=== PATIENT | female | born 1970 | race African-American/Black ===

== ENCOUNTER 2016-12-10 02:11 | Emergency (ER) | payer OTHER ==
[2016-12-10 02:31] VITALS: BP 145/91; PULSE 89; TEMP 98; BMI 29.8
[2016-12-10 02:52] LABS: BASOPHIL 0.7 % (0-2.0); EOSINOPHIL 5.9 % (0-4.5); MCH 26.8 pg (25.7-33.7); MCHC 32.5 g/dl (32.0-36.0); MEAN CELL VOLUME 82.6 fl (80-96); MEAN PLT VOLUME 7.8 fl (7.5-11.1); NEUTROPHILS 54.5 % (42.8-82.8); PLATELET COUNT 341 K/MM3 (134-434); RDW 15.1 % (11.6-15.6); WHITE BLOOD COUNT 7.8 K/mm3 (4.0-10.0)
[2016-12-10 02:53] LABS: URINE APPEARANCE CLOUDY; URINE BILIRUBIN NEGATIVE (NEGATIVE); URINE COLOR YELLOW; URINE GLUCOSE (UA) NEGATIVE (NEGATIVE); URINE KETONE NEGATIVE (NEGATIVE); URINE NITRITE POSITIVE (NEGATIVE); URINE UROBILINOGEN NEGATIVE E.U./dl (0.2-1.0)
[2016-12-10 02:58] LABS: URINE BLOOD 2+ (NEGATIVE); URINE LEUK ESTERASE 3+ (NEGATIVE); URINE PROTEIN 2+ (NEGATIVE)
--- NOTE | 2016-12-10 03:12 | PDOC ---
*Physical Exam - Vital Signs Last Vital Signs Temp Pulse Resp BP Pulse Ox 98 F 89 18 145/91 99 12/10/16 02:24 12/10/16 02:24 12/10/16 02:24 12/10/16 02:24 12/10/16 02:24 ED Treatment Course - LABORATORY CBC & Chemistry Diagram: 12/10/16 02:34 12/10/16 02:34 - ADDITIONAL ORDERS Additional order review: Laboratory Results 12/10/16 02:36 Urine Color Yellow Urine Appearance Cloudy Urine pH 5.0 Urine Protein 2+ H Urine Glucose (UA) Negative Urine Ketones Negative Urine Blood 2+ H Urine Nitrite Positive Urine Bilirubin Negative Urine Urobilinogen Negative Ur Leukocyte Esterase 3+ H Urine HCG, Qual Negative 12/10/16 02:34 RBC 4.91 MCV 82.6 MCHC 32.5 RDW 15.1 MPV 7.8 Neutrophils % 54.5 Lymphocytes % 30.6 Monocytes % 8.3 Eosinophils % 5.9 H Basophils % 0.7 Medical Decision Making - Medical Decision Making 12/10/16 03:12 agree with care from CHON Santos *DC/Admit/Observation/Transfer Diagnosis at time of Disposition: UTI (urinary tract infection) - Discharge Dispostion Disposition: HOME - Prescriptions Prescriptions: Sulfamethoxazole/Trimethoprim [Bactrim Ds -] 1 tab PO BID #20 tablet Fluconazole [Diflucan -] 100 mg PO ONCE #1 tablet Fluconazole [Diflucan -] 50 mg PO ONCE #1 tablet Phenazopyridine HCl [Pyridium -] 100 mg PO TID #6 tablet - Referrals Referrals: Miguel Dempsey [Primary Care Provider] - - Patient Instructions Printed Discharge Instructions: DI for Urinary Tract Infection (UTI) Additional Instructions: FOLLOW UP WITH YOUR PRIMARY CARE PROVIDER NEEDED. TAKE MEDICATIONS PRESCRIBED. DIFLUCAN IS FOR POTENTIAL YEAST INFECTION; AND IS A ONE TIME DOSE, SO BE SURE YOU ARE EXPERIENCING A YEAST INFECTION. RETURN IF ANY CONCERNS FOR FURTHER EVALUATION. Print Language: FRISIAN
[2016-12-10 03:17] LABS: ALBUMIN 3.6 g/dl (3.4-5.0); BILIRUBIN,TOTAL 0.3 mg/dL (0.2-1.0); CALCIUM 9.2 mg/dL (8.5-10.1); COCKROFT - GAULT 72.998; CREATININE 1.1 mg/dL (0.55-1.02); TOT PROT 7.4 g/dl (6.4-8.2)
[2016-12-10 03:19] LABS: URINE BACTERIA RARE /hpf (NONE SEEN); URINE MUCUS RARE; URINE RBC 78 /hpf (0-3); URINE WBC 682 /hpf (3-5)
[2016-12-10] MEDS ORDERED: SULFAMETHOXAZOLE/TRIMETHOPRIM 800MG/160MG D.S. TABLET PO ONE (04:03)
--- NOTE | 2016-12-10 04:08 | PDOC ---
History of Present Illness - General Chief Complaint: Hematuria Stated Complaint: BLOOD IN URINE Time Seen by Provider: 12/10/16 02:15 History Source: Patient Exam Limitations: No Limitations - History of Present Illness Travel History: No Initial Comments: 12/10/16 04:03 46yo Female patient presents to ED c/o pain on urination, pressure, urgency, frequency, blood, foul odor x 1 week. Patient states she has been so busy with children graduation, moving south, and other things that she put symptoms off. Patient states her significant other made her come in tonight. She denies any other complaints at this time. LNMP: "Menopause." Timing/Duration: reports: getting worse Quality: reports: moderate Abdominal Pain Onset Location: reports: suprapubic Pain Radiation: reports: no radiation Activities at Onset: reports: no specific activity Past History - Travel Traveled outside of the country in the last 30 days: No Close contact w/someone who was outside of country & ill: No - Past Medical History Allergies/Adverse Reactions: Allergies Allergy/AdvReac Type Severity Reaction Status Date / Time ketorolac tromethamine Allergy Verified 12/10/16 02:16 [From Toradol] Home Medications: Ambulatory Orders No Home Medications 0 mg PO DAILY 05/18/12 Fluconazole [Diflucan -] 50 mg PO ONCE #1 tablet 12/10/16 Fluconazole [Diflucan -] 100 mg PO ONCE #1 tablet 12/10/16 Phenazopyridine HCl [Pyridium -] 100 mg PO TID #6 tablet 12/10/16 Sulfamethoxazole/Trimethoprim [Bactrim Ds -] 1 tab PO BID #20 tablet 12/10/16 - Immunization History Immunization Up to Date: Yes - Psycho/Social/Smoking Cessation Hx Anxiety: No Suicidal Ideation: No Smoking Status: No Smoking History: Current every day smoker Number of Cigarettes Smoked Daily: 0 Information on smoking cessation initiated: No Hx Alcohol Use: No Drug/Substance Use Hx: Yes (marijuana) Substance Use Type: Marijuana Abd/GI Specific PMHX - Complaint Specific PMHX Colitis: No Diverticulitis: No Gall Bladder Disease: No GERD: No Hepatitis: No Irritable Bowel Synd (IBS): No Pancreatitis: No GI Ulcer Disease: No Review of Systems - Review of Systems Able to Perform ROS?: Yes Is the patient limited Liberian proficient: No Constitutional: No: Chills, Fever Respiratory: No: Cough, Shortness of Breath, Stridor, Wheezing Cardiac (ROS): No: Chest Pain, Lightheadedness, Palpitations, Syncope, Chest Tightness ABD/GI: No: Constipated, Diarrhea, Nausea, Poor Appetite, Poor Fluid Intake, Rectal Bleeding, Vomiting : Yes: Burning, Dysuria, Frequency, Hematuria, Pain, Urgency. No: Discharge, Flank Pain, Incontinence Musculoskeletal: No: Back Pain Integumentary: No: Bruising, Erythema, Rash Neurological: No: Headache, Seizure, Unsteady Gait, Ataxia, Dizziness All Other Systems: Reviewed and Negative *Physical Exam - Vital Signs Last Vital Signs Temp Pulse Resp BP Pulse Ox 98 F 89 18 145/91 99 12/10/16 02:24 12/10/16 02:24 12/10/16 02:24 12/10/16 02:24 12/10/16 02:24 - Physical Exam General Appearance: Yes: Nourished, Appropriately Dressed. No: Apparent Distress, Mild Distress, Moderate Distress, Severe Distress Neck: positive: Trachea midline, Supple. negative: Rigid, Stridor, Lymphadenopathy (R), Lymphadenopathy (L) Respiratory/Chest: positive: Lungs Clear, Normal Breath Sounds. negative: Chest Tender, Respiratory Distress, Accessory Muscle Use, Labored Respiration, Rapid RR, Decreased Breath Sounds, Wheezing Cardiovascular: positive: Regular Rhythm, Regular Rate Gastrointestinal/Abdominal: positive: Normal Bowel Sounds, Soft. negative: Distended, Guarding, Rebound, Tenderness Musculoskeletal: positive: Normal Inspection. negative: CVA Tenderness, Vertebral Tenderness Extremity: positive: Normal Capillary Refill, Normal Inspection, Normal Range of Motion. negative: Pedal Edema, Swelling, Calf Tenderness, Erythema, Inflammation Integumentary: positive: Normal Color, Dry, Warm. 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, Fully Oriented, Alert, Normal Mood/ Affect, Normal Response, Motor Strength 12/10 ED Treatment Course - LABORATORY CBC & Chemistry Diagram: 12/10/16 02:34 12/10/16 02:34 - ADDITIONAL ORDERS Additional order review: Laboratory Results 12/10/16 12/10/16 02:36 02:34 Sodium 138 Potassium 3.6 Chloride 104 Carbon Dioxide 23 Anion Gap 11 BUN 15 D Creatinine 1.1 H D Creat Clearance w eGFR 53.01 Random Glucose 115 H D Calcium 9.2 Total Bilirubin 0.3 AST 11 L D ALT 19 D Alkaline Phosphatase 77 Total Protein 7.4 Albumin 3.6 Urine Color Yellow Urine Appearance Cloudy Urine pH 5.0 Urine Protein 2+ H Urine Glucose (UA) Negative Urine Ketones Negative Urine Blood 2+ H Urine Nitrite Positive Urine Bilirubin Negative Urine Urobilinogen Negative Ur Leukocyte Esterase 3+ H Urine RBC 78 Urine WBC 682 Ur Epithelial Cells Rare Urine Bacteria Rare Urine Mucus Rare Urine HCG, Qual Negative 12/10/16 02:34 RBC 4.91 MCV 82.6 MCHC 32.5 RDW 15.1 MPV 7.8 Neutrophils % 54.5 Lymphocytes % 30.6 Monocytes % 8.3 Eosinophils % 5.9 H Basophils % 0.7 *DC/Admit/Observation/Transfer Diagnosis at time of Disposition: UTI (urinary tract infection) Qualifiers: Urinary tract infection type: urethritis Qualified Code(s): N34.2 - Other urethritis - Discharge Dispostion Disposition: HOME Condition at time of disposition: Stable Admit: No - Prescriptions Prescriptions: Sulfamethoxazole/Trimethoprim [Bactrim Ds -] 1 tab PO BID #20 tablet Fluconazole [Diflucan -] 100 mg PO ONCE #1 tablet Fluconazole [Diflucan -] 50 mg PO ONCE #1 tablet Phenazopyridine HCl [Pyridium -] 100 mg PO TID #6 tablet - Patient Instructions Printed Discharge Instructions: DI for Urinary Tract Infection (UTI) Additional Instructions: FOLLOW UP WITH YOUR PRIMARY CARE PROVIDER NEEDED. TAKE MEDICATIONS PRESCRIBED. DIFLUCAN IS FOR POTENTIAL YEAST INFECTION; AND IS A ONE TIME DOSE, SO BE SURE YOU ARE EXPERIENCING A YEAST INFECTION. RETURN IF ANY CONCERNS FOR FURTHER EVALUATION. Print Language: MACEDONIAN
[2016-12-10] MEDS ORDERED: SULFAMETHOXAZOLE/TRIMETHOPRIM 800MG/160MG D.S. TABLET ONE (04:10)
[2016-12-10] MEDS ORDERED: cefTRIAXone SODIUM 1 GM VIAL ONE (04:10)
[2016-12-10] MEDS ORDERED: LIDOCAINE HCL 2% (20ML MULTI-DOSE VIAL) NR ONE (04:12)
== END 2016-12-10 04:30 | disposition home or self-care (01) ==
LOC: JER 02:11
DX: N34.2 Other urethritis (principal); F17.210 Nicotine dependence, cigarettes, uncomplicated
CPT/HCPCS: 36415; 80053; 81003; 81015; 84703; 85025; 96372; 99282-25

== ENCOUNTER 2017-08-22 16:44 | Observation (INO) | payer OTHER ==
[2017-08-22 16:56] VITALS: BMI 32.9
--- NOTE | 2017-08-22 17:00 | PDOC ---
Rapid Medical Evaluation Chief Complaint: Abscess Boil Time Seen by Provider: 08/22/17 16:51 Medical Evaluation: Allergies Allergy/AdvReac Type Severity Reaction Status Date / Time ketorolac tromethamine Allergy Verified 08/22/17 16:49 [From Toradol] 08/22/17 16:53 I have performed a brief in-person evaluation of this patient. The patient presents with a chief complaint of pain and abscess to left jaw x 2 days. Reports pain radiating to left ear. Also reports fever and chills Pertinent physical exam findings: appears in pain HEENT: SHARON, swelling to left jaw with erythema, warm, indurated and tender mulitple caries and broken teeth Lungs clear bilateral I have ordered the following: analgesia iv acces labs The patient will proceed to the ED for further evaluation.
[2017-08-22 17:18] LABS: BASO % 0.7 % (0-2.0); EOS % 3.8 % (0-4.5); HEMATOCRIT 42.2 % (32.4-45.2); HEMOGLOBIN 14.1 GM/dL (10.7-15.3); LYMPH % 21.5 % (8-40); MCH 27.5 pg (25.7-33.7); MCHC 33.4 g/dl (32.0-36.0); MEAN CELL VOLUME 82.2 fl (80-96); MONO % 10.9 % (3.8-10.2); NEUT % 63.1 % (42.8-82.8); PLATELET COUNT 362 K/MM3 (134-434); RBC 5.14 M/mm3 (3.60-5.2); RDW 15.2 % (11.6-15.6)
[2017-08-22 18:21] LABS: ALBUMIN 3.6 g/dl (3.4-5.0); ALK PHOS 76 U/L (45-117); ANION GAP 10 (8-16); BILIRUBIN,TOTAL 0.4 mg/dL (0.2-1.0); BLOOD UREA NITROGEN 12 mg/dL (7-18); CALCIUM 8.8 mg/dL (8.5-10.1); CHLORIDE 104 mmol/L (98-107); CO2 23 mmol/L (21-32); CREATININE 0.9 mg/dL (0.55-1.02); GLUCOSE,RANDOM 94 mg/dL (74-106); POTASSIUM 4.1 mmol/L (3.5-5.1); SGOT/AST 12 U/L (15-37); SGPT/ALT 14 U/L (12-78); SODIUM 137 mmol/L (136-145); TOT PROT 7.7 g/dl (6.4-8.2)
[2017-08-22] MEDS ORDERED: CLINDAMYCIN 600MG PREMIX IVPB 600 MG/50 ML BAG IVPB ONE ×2 (18:44→19:26)
[2017-08-22] MEDS ORDERED: HYDROmorphone HCL CARPU-JECT 1 MG/1 ML DISP.SYRIN IVPUSH ONE (19:53)
[2017-08-22 20:36] LABS: URINE APPEARANCE CLEAR; URINE BILIRUBIN NEGATIVE (NEGATIVE); URINE BLOOD NEGATIVE (NEGATIVE); URINE COLOR YELLOW; URINE GLUCOSE (UA) NEGATIVE (NEGATIVE); URINE KETONE NEGATIVE (NEGATIVE); URINE LEUK ESTERASE NEGATIVE (NEGATIVE); URINE NITRITE NEGATIVE (NEGATIVE); URINE PROTEIN NEGATIVE (NEGATIVE); URINE UROBILINOGEN NEGATIVE mg/dL (0.2-1.0)
[2017-08-22 20:37] LABS: BASO % 0.9 % (0-2.0); EOS % 4.4 % (0-4.5); HEMATOCRIT 41.6 % (32.4-45.2); HEMOGLOBIN 13.5 GM/dL (10.7-15.3); LYMPH % 27.4 % (8-40); MCH 27.1 pg (25.7-33.7); MCHC 32.5 g/dl (32.0-36.0); MEAN CELL VOLUME 83.3 fl (80-96); MEAN PLT VOLUME 8.2 fl (7.5-11.1); MONO % 9.3 % (3.8-10.2); PLATELET COUNT 350 K/MM3 (134-434); RDW 14.9 % (11.6-15.6); WHITE BLOOD COUNT 8.4 K/mm3 (4.0-10.0)
[2017-08-22] MEDS ORDERED: HYDROmorphone HCL CARPU-JECT 1 MG/1 ML DISP.SYRIN ONE (20:42)
[2017-08-22 20:50] LABS: INR 1.04 (0.82-1.09); PROTHROMBIN TIME (PATIENT) 11.7 SEC (9.98-11.88)
[2017-08-22 20:52] LABS: ACTIVATED PTT 32.5 SECONDS (26.9-34.4)
--- NOTE | 2017-08-22 21:05 | PDOC ---
History of Present Illness <Alyssa Hussein - Last Filed: 08/22/17 21:05> - General History Source: Patient Exam Limitations: No Limitations - History of Present Illness Initial Comments: 08/22/17 22:22 Patient is a 47 year old female with a significant past medical history of fibroids, who presents to the ED with complaints of left sided facial swelling and pain that began last week. Patient reports cracking her molar last week causing immediate pain. She reports not seeing anyone for left sided jaw pain, but stated she could no longer stand the pain this morning. As per patient, reports being too frightened to open her mouth, stating it causes her increased pain. She reports experiencing headache and difficulty breathing while laying down secondary to left sided facial pain. Patient reports experiencing nasal congestion, chest congestion, chills and fever of 99.5. Denies chest pain. Denies nausea, vomiting. Denies contact with sick individuals , out of state travelling. Denies any other symptoms. Allergie: Toradol Social history: No smoking. No alcohol. No illicit drugs. Surgical history: Hysterectomy PMD: Dr. Davi Ahumada <Lauro Aguilar - Last Filed: 08/22/17 22:23> - General Chief Complaint: Abscess Boil Stated Complaint: ABSCESS BOIL Time Seen by Provider: 08/22/17 16:51 Past History - Past Medical History CVA: No COPD: No DVT: No - Immunization History Immunization Up to Date: Yes - Suicide/Smoking/Psychosocial Hx Smoking Status: No Smoking History: Never smoked Have you smoked in the past 12 months: No Number of Cigarettes Smoked Daily: 2 Information on smoking cessation initiated: No Hx Alcohol Use: No Drug/Substance Use Hx: No Substance Use Type: Cocaine, Marijuana <Alyssa Hussein - Last Filed: 08/22/17 21:05> <Lauro Aguilar - Last Filed: 08/22/17 22:23> - Past Medical History Allergies/Adverse Reactions: Allergies Allergy/AdvReac Type Severity Reaction Status Date / Time ketorolac tromethamine Allergy Verified 08/22/17 16:49 [From Toradol] Home Medications: Ambulatory Orders NK [No Known Home Medication] 08/22/17 Review of Systems - Review of Systems Able to Perform ROS?: Yes Comments:: 08/22/17 22:22 CONSTITUTIONAL: Absent: fever, chills, diaphoresis, generalized weakness, malaise, loss of appetite HEENT: +Left sided face pain. +Left sided facial edema. +Nasal congestion. Absent: rhinorrhea, throat pain, throat swelling, difficulty swallowing, ear pain, eye pain, visual Changes CARDIOVASCULAR: Absent: chest pain, syncope, palpitations, irregular heart rate, lightheadedness , peripheral edema RESPIRATORY: +Chest congestion. Absent: cough, shortness of breath, dyspnea with exertion, orthopnea, wheezing, stridor, hemoptysis GASTROINTESTINAL: Absent: abdominal pain, abdominal distension, nausea, vomiting, diarrhea, constipation, melena, hematochezia GENITOURINARY: Absent: dysuria, frequency, urgency, hesitancy, hematuria, flank pain, genital pain MUSCULOSKELETAL: Absent: myalgia, arthralgia, joint swelling SKIN: Absent: rash, itching, pallor HEMATOLOGIC/IMMUNOLOGIC: Absent: easy bleeding, easy bruising, lymphadenopathy, frequent infections ENDOCRINE: Absent: unexplained weight gain, unexplained weight loss, heat intolerance, cold intolerance NEUROLOGIC: +Headache Absent: focal weakness or paresthesias, dizziness, unsteady gait, seizure, mental status changes, bladder or bowel incontinence PSYCHIATRIC: Absent: anxiety, depression, suicidal or homicidal ideation, hallucinations. All Other Systems: Reviewed and Negative <Lauro Aguilar - Last Filed: 08/22/17 22:23> *Physical Exam - Vital Signs Last Vital Signs Temp Pulse Resp BP Pulse Ox 99.5 F 100 H 17 129/79 98 08/22/17 16:50 08/22/17 16:50 08/22/17 16:50 08/22/17 16:50 08/22/17 16:50 <Alyssa Hussein - Last Filed: 08/22/17 21:05> - Vital Signs Last Vital Signs Temp Pulse Resp BP Pulse Ox 99.5 F 100 H 17 129/79 98 08/22/17 16:50 08/22/17 16:50 08/22/17 16:50 08/22/17 16:50 08/22/17 16:50 - Physical Exam Comments: 08/22/17 22:22 GENERAL: +Fever, +Chills Well developed, well nourished. Awake and alert. No acute distress. HEENT: +Left mandibular swelling. +Submandibular left sided swelling. +cracked mandibular left molar. +Trismus. +Erythema on face. Normocephalic, atraumatic. PERRLA, EOMI. No conjunctival pallor. Sclera are non- icteric. Moist mucous membranes. Oropharynx is clear. NECK: Supple. Full ROM. No JVD. Carotid pulses 2+ and symmetric, without bruits. No thyromegaly. No lymphadenopathy. CARDIOVASCULAR: +Tachycardic Regular rate and rhythm. No murmurs, rubs, or gallops. Distal pulses are 2+ and symmetric. PULMONARY: No evidence of respiratory distress. Lungs clear to auscultation bilaterally. No wheezing, rales or rhonchi. ABDOMINAL: Soft. Non-tender. Non-distended. No rebound or guarding. No organomegaly. Normoactive bowel sounds. MUSCULOSKELETAL Normal range of motion at all joints. No bony deformities or tenderness. No CVA tenderness. EXTREMITIES: No cyanosis. No clubbing. No edema. No calf tenderness. SKIN: Warm and dry. Normal capillary refill. No rashes. No jaundice. NEUROLOGICAL: Alert, awake, appropriate. Cranial nerves 2-12 intact. No deficits to light touch and temperature in face, upper extremities and lower extremities. No motor deficits in the in face, upper extremities and lower extremities. Normoreflexic in the upper and lower extremities. Normal speech. Toes are down-going bilaterally. Gait is normal without ataxia. PSYCHIATRIC: Cooperative. Good eye contact. Appropriate mood and affect. <Lauro Aguilar - Last Filed: 08/22/17 22:23> ED Treatment Course - LABORATORY CBC & Chemistry Diagram: 08/22/17 20:20 08/22/17 17:07 - ADDITIONAL ORDERS Additional order review: Laboratory Results 08/22/17 08/22/17 20:20 17:07 PT with INR 11.70 INR 1.04 PTT (Actin FS) 32.5 Sodium 137 Potassium 4.1 Chloride 104 Carbon Dioxide 23 Anion Gap 10 BUN 12 Creatinine 0.9 Creat Clearance w eGFR > 60 Random Glucose 94 Calcium 8.8 Total Bilirubin 0.4 D AST 12 L ALT 14 D Alkaline Phosphatase 76 Total Protein 7.7 Albumin 3.6 08/22/17 08/22/17 20:20 17:07 RBC 5.00 5.14 MCV 83.3 82.2 MCHC 32.5 33.4 RDW 14.9 15.2 MPV 8.2 8.0 Neutrophils % 58.0 63.1 Lymphocytes % 27.4 D 21.5 D Monocytes % 9.3 10.9 H Eosinophils % 4.4 3.8 Basophils % 0.9 0.7 - RADIOLOGY Radiology Studies Ordered: Category Date Time Status SOFT TISSUE NECK CT W/O CONTR [CT] Stat CT Scan 08/22/17 18:45 Completed - Medications Given in the ED: ED Medications Discontinued Medications Generic Name Dose Route Start Last Admin Trade Name Chon PRN Reason Stop Dose Admin Hydromorphone HCl 0.5 mg 08/22/17 19:53 08/22/17 20:51 Dilaudid Injection - IVPUSH 08/22/17 19:54 0.5 mg ONCE ONE Administration Clindamycin Phosphate 600 mg in 50 mls @ 100 mls/hr 08/22/17 18:44 08/22/17 20:32 Cleocin 600 Mg Premix Ivpb - IVPB 08/22/17 19:13 100 mls/hr ONCE ONE Administration Oxycodone/Acetaminophen 1 combo 08/22/17 17:01 08/22/17 18:29 Percocet 5/325 - PO 08/22/17 17:02 Not Given ONCE ONE <Alyssa Hussein - Last Filed: 08/22/17 21:05> - LABORATORY CBC & Chemistry Diagram: 08/22/17 20:20 08/22/17 20:20 - ADDITIONAL ORDERS Additional order review: Laboratory Results 08/22/17 08/22/17 08/22/17 20:56 20:20 20:20 PT with INR INR PTT (Actin FS) VBG pH 7.36 POC VBG pCO2 43.7 POC VBG pO2 70.6 H Mixed VBG HCO3 23.8 Sodium 138 Potassium 4.1 Chloride 104 Carbon Dioxide 25 Anion Gap 9 BUN 12 Creatinine 0.9 Creat Clearance w eGFR > 60 Random Glucose 89 Lactic Acid Cancelled Calcium 8.3 L Total Bilirubin 0.5 D AST 11 L ALT 14 Alkaline Phosphatase 77 Creatine Kinase 110 Troponin I < 0.02 Total Protein 7.6 Albumin 3.4 Urine Color Urine Appearance Urine pH Ur Specific [place] Urine Protein Urine Glucose (UA) Urine Ketones Urine Blood Urine Nitrite Urine Bilirubin Urine Urobilinogen Ur Leukocyte Esterase 08/22/17 08/22/17 08/22/17 20:20 20:20 17:07 PT with INR 11.70 INR 1.04 PTT (Actin FS) 32.5 VBG pH POC VBG pCO2 POC VBG pO2 Mixed VBG HCO3 Sodium 137 Potassium 4.1 Chloride 104 Carbon Dioxide 23 Anion Gap 10 BUN 12 Creatinine 0.9 Creat Clearance w eGFR > 60 Random Glucose 94 Lactic Acid Calcium 8.8 Total Bilirubin 0.4 D AST 12 L ALT 14 D Alkaline Phosphatase 76 Creatine Kinase Troponin I Total Protein 7.7 Albumin 3.6 Urine Color Yellow Urine Appearance Clear Urine pH 5.0 Ur Specific [place] 1.030 Urine Protein Negative Urine Glucose (UA) Negative Urine Ketones Negative Urine Blood Negative Urine Nitrite Negative Urine Bilirubin Negative Urine Urobilinogen Negative Ur Leukocyte Esterase Negative 08/22/17 08/22/17 20:20 17:07 RBC 5.00 5.14 MCV 83.3 82.2 MCHC 32.5 33.4 RDW 14.9 15.2 MPV 8.2 8.0 Neutrophils % 58.0 63.1 Lymphocytes % 27.4 D 21.5 D Monocytes % 9.3 10.9 H Eosinophils % 4.4 3.8 Basophils % 0.9 0.7 - Medications Given in the ED: ED Medications Discontinued Medications Generic Name Dose Route Start Last Admin Trade Name Chon PRN Reason Stop Dose Admin Hydromorphone HCl 0.5 mg 08/22/17 19:53 08/22/17 20:51 Dilaudid Injection - IVPUSH 08/22/17 19:54 0.5 mg ONCE ONE Administration Clindamycin Phosphate 600 mg in 50 mls @ 100 mls/hr 08/22/17 18:44 08/22/17 20:32 Cleocin 600 Mg Premix Ivpb - IVPB 08/22/17 19:13 100 mls/hr ONCE ONE Administration Oxycodone/Acetaminophen 1 combo 08/22/17 17:01 08/22/17 18:29 Percocet 5/325 - PO 08/22/17 17:02 Not Given ONCE ONE <Lauro Aguilar - Last Filed: 08/22/17 22:23> *DC/Admit/Observation/Transfer - Discharge Dispostion Admit: Yes <Alyssa Hussein - Last Filed: 08/22/17 21:05> - Attestations Scribe Attestion: 08/22/17 22:23 Documentation prepared by Lauro Aguilar, acting as director medical writing for Alyssa Hussein MD/DO. <Lauro Aguilar - Last Filed: 08/22/17 22:23> Diagnosis at time of Disposition: Dental abscess, Swelling of left side of face, Submandibular abscess
[2017-08-22 21:14] LABS: ALBUMIN 3.4 g/dl (3.4-5.0); ANION GAP 9 (8-16); BILIRUBIN,TOTAL 0.5 mg/dL (0.2-1.0); BLOOD UREA NITROGEN 12 mg/dL (7-18); CALCIUM 8.3 mg/dL (8.5-10.1); CHLORIDE 104 mmol/L (98-107); CO2 25 mmol/L (21-32); CREATININE 0.9 mg/dL (0.55-1.02); GLUCOSE,RANDOM 89 mg/dL (74-106); POTASSIUM 4.1 mmol/L (3.5-5.1); SGOT/AST 11 U/L (15-37); SGPT/ALT 14 U/L (12-78); SODIUM 138 mmol/L (136-145); TOT PROT 7.6 g/dl (6.4-8.2)
[2017-08-22 21:17] LABS: ALK PHOS 77 U/L (45-117)
[2017-08-22 21:49] LABS: VENOUS PC02 43.7 mmHg (38-52); VENOUS PH 7.36 (7.32-7.42); VENOUS PO2 70.6 mmHg (28-48)
--- NOTE | 2017-08-22 23:18 | HP ---
Admitting History and Physical - Primary Care Physician PCP: Mattie Laguna - Admission Chief Complaint: left sided facial pain and swelling History of Present Illness: 47 year old female with a significant past medical history of fibroids, who presents to the ED with complaints of left sided facial swelling and pain that began last week. Patient reports cracking her molar last week causing immediate pain. She reports not seeing anyone for left sided jaw pain, but stated she could no longer stand the pain this morning. As per patient , reports being too frightened to open her mouth, stating it causes her increased pain. She reports experiencing headache and difficulty breathing while laying down secondary to left sided facial pain. Patient reports experiencing nasal congestion, chest congestion, chills and fever of 99.5. - Smoking History Smoking history: Never smoked Have you smoked in the past 12 months: No Aproximately how many cigarettes per day: 2 - Alcohol/Substance Use Hx Alcohol Use: No Home Medications - Allergies Allergies/Adverse Reactions: Allergies Allergy/AdvReac Type Severity Reaction Status Date / Time ketorolac tromethamine Allergy Verified 08/22/17 16:49 [From Toradol] - Home Medications Home Medications: Ambulatory Orders NK [No Known Home Medication] 08/22/17 Physical Examination Vital Signs: Vital Signs Temperature 99.5 F 08/22/17 16:50 Pulse Rate 100 H 08/22/17 16:50 Respiratory Rate 17 08/22/17 16:50 Blood Pressure 129/79 08/22/17 16:50 O2 Sat by Pulse Oximetry (%) 98 08/22/17 16:50 Constitutional: Yes: No Distress HENT: Yes: Atraumatic, Other (left side of face swollen) Cardiovascular: Yes: Regular Rate and Rhythm Respiratory: Yes: CTA Bilaterally Gastrointestinal: Yes: Normal Bowel Sounds Extremities: Yes: WNL Edema: Yes Peripheral Pulses WNL: No Neurological: Yes: Alert, Oriented Labs: CBC, BMP 08/22/17 20:20 08/22/17 20:20 Imaging - Results Cat Scan: Report Reviewed Problem List - Problems (1) Submandibular abscess Assessment/Plan: iv abx prn pain meds id consult Code(s): K12.2 - CELLULITIS AND ABSCESS OF MOUTH (2) Swelling of left side of face Code(s): R22.0 - LOCALIZED SWELLING, MASS AND LUMP, HEAD Assessment/Plan Laboratory Tests 08/22/17 08/22/17 08/22/17 17:07 17:07 20:20 WBC 9.0 8.4 RBC 5.14 5.00 Hgb 14.1 13.5 Hct 42.2 41.6 MCV 82.2 83.3 MCH 27.5 27.1 MCHC 33.4 32.5 RDW 15.2 14.9 Plt Count 362 350 MPV 8.0 8.2 Neutrophils % 63.1 58.0 Lymphocytes % 21.5 D 27.4 D Monocytes % 10.9 H 9.3 Eosinophils % 3.8 4.4 Basophils % 0.7 0.9 PT with INR INR PTT (Actin FS) VBG pH POC VBG pCO2 POC VBG pO2 Mixed VBG HCO3 Sodium 137 Potassium 4.1 Chloride 104 Carbon Dioxide 23 Anion Gap 10 BUN 12 Creatinine 0.9 Creat Clearance w eGFR > 60 Random Glucose 94 Lactic Acid Calcium 8.8 Total Bilirubin 0.4 D AST 12 L ALT 14 D Alkaline Phosphatase 76 Creatine Kinase Troponin I Total Protein 7.7 Albumin 3.6 Urine Color Urine Appearance Urine pH Ur Specific [place] Urine Protein Urine Glucose (UA) Urine Ketones Urine Blood Urine Nitrite Urine Bilirubin Urine Urobilinogen Ur Leukocyte Esterase 08/22/17 08/22/17 08/22/17 20:20 20:20 20:20 WBC RBC Hgb Hct MCV MCH MCHC RDW Plt Count MPV Neutrophils % Lymphocytes % Monocytes % Eosinophils % Basophils % PT with INR 11.70 INR 1.04 PTT (Actin FS) 32.5 VBG pH POC VBG pCO2 POC VBG pO2 Mixed VBG HCO3 Sodium 138 Potassium 4.1 Chloride 104 Carbon Dioxide 25 Anion Gap 9 BUN 12 Creatinine 0.9 Creat Clearance w eGFR > 60 Random Glucose 89 Lactic Acid Calcium 8.3 L Total Bilirubin 0.5 D AST 11 L ALT 14 Alkaline Phosphatase 77 Creatine Kinase 110 Troponin I < 0.02 Total Protein 7.6 Albumin 3.4 Urine Color Yellow Urine Appearance Clear Urine pH 5.0 Ur Specific [place] 1.030 Urine Protein Negative Urine Glucose (UA) Negative Urine Ketones Negative Urine Blood Negative Urine Nitrite Negative Urine Bilirubin Negative Urine Urobilinogen Negative Ur Leukocyte Esterase Negative 08/22/17 08/22/17 08/22/17 20:20 20:56 21:00 WBC RBC Hgb Hct MCV MCH MCHC RDW Plt Count MPV Neutrophils % Lymphocytes % Monocytes % Eosinophils % Basophils % PT with INR INR PTT (Actin FS) VBG pH 7.36 POC VBG pCO2 43.7 POC VBG pO2 70.6 H Mixed VBG HCO3 23.8 Sodium Potassium Chloride Carbon Dioxide Anion Gap BUN Creatinine Creat Clearance w eGFR Random Glucose Lactic Acid Cancelled 0.5 Calcium Total Bilirubin AST ALT Alkaline Phosphatase Creatine Kinase Troponin I Total Protein Albumin Urine Color Urine Appearance Urine pH Ur Specific [place] Urine Protein Urine Glucose (UA) Urine Ketones Urine Blood Urine Nitrite Urine Bilirubin Urine Urobilinogen Ur Leukocyte Esterase Active Medications Generic Name Dose Route Start Last Admin Trade Name Freq PRN Reason Stop Dose Admin Acetaminophen 650 mg 08/22/17 23:23 Tylenol - PO Q6H PRN FEVER Acetaminophen 325 mg 08/22/17 23:35 08/23/17 09:15 Tylenol - PO 325 mg Q6H PRN Administration PAIN LEVEL 6-10 Clindamycin Phosphate 300 mg in 50 mls @ 100 mls/hr 08/23/17 03:00 08/23/17 15:51 Cleocin 300 Mg Premix Ivpb IVPB 100 mls/hr Q6H-IV ARABELLA Administration Ampicillin Sodium/Sulbactam 100 mls @ 200 mls/hr 08/23/17 18:00 Sodium 3 gm/ Dextrose IVPB Q8H-IV ARABELLA Oxycodone HCl 5 mg 08/22/17 23:35 08/23/17 09:03 Roxicodone - PO 5 mg Q6H PRN Administration PAIN LEVEL 6-10
[2017-08-22] MEDS ORDERED: oxyCODONE HCL 5 MG TABLET PO PRN (23:35)
[2017-08-23] MEDS ORDERED: oxyCODONE HCL 5 MG TABLET ONE ×2 (03:15→09:05)
[2017-08-23] MEDS: CLINDAMYCIN 300 MG PREMIX IVPB 300 MG/50 ML BAG IVPB SCH ×4 (03:24→21:17)
[2017-08-23 08:00] LABS: BASO % 0.7 % (0-2.0); HEMOGLOBIN 13.7 GM/dL (10.7-15.3); LYMPH % 28.2 % (8-40); MCHC 32.5 g/dl (32.0-36.0); MEAN CELL VOLUME 82.9 fl (80-96); MEAN PLT VOLUME 8.2 fl (7.5-11.1); MONO % 10.6 % (3.8-10.2); NEUT % 53.5 % (42.8-82.8); PLATELET COUNT 341 K/MM3 (134-434); RBC 5.06 M/mm3 (3.60-5.2); RDW 15.2 % (11.6-15.6); WHITE BLOOD COUNT 7.9 K/mm3 (4.0-10.0)
[2017-08-23 08:33] LABS: ALBUMIN 3.5 g/dl (3.4-5.0); ALK PHOS 75 U/L (45-117); ANION GAP 9 (8-16); BILIRUBIN,TOTAL 0.4 mg/dL (0.2-1.0); BLOOD UREA NITROGEN 13 mg/dL (7-18); CALCIUM 8.6 mg/dL (8.5-10.1); CHLORIDE 105 mmol/L (98-107); CO2 23 mmol/L (21-32); GLUCOSE,RANDOM 97 mg/dL (74-106); POTASSIUM 4.4 mmol/L (3.5-5.1); SGOT/AST 14 U/L (15-37); SGPT/ALT 14 U/L (12-78); SODIUM 137 mmol/L (136-145); TOT PROT 7.4 g/dl (6.4-8.2)
[2017-08-23] MEDS ORDERED: ACETAMINOPHEN 325 MG TABLET (FP) ONE ×2 (09:05→16:33)
[2017-08-23] MEDS: ACETAMINOPHEN 325 MG TABLET (FP) PO PRN ×2 (09:15→16:33)
--- NOTE | 2017-08-23 16:37 | CON.ID ---
Consult Consult Specialty:: infectious diseases Reason for Consultation:: swelling of the left side of the face - History of Present Illness Chief Complaint: pain of the left side of the jaw History of Present Illness: 47 year old female with a significant past medical history of fibroids, who presents to the ED with complaints of left sided facial swelling and pain that began last week. Patient reports cracking her molar last week causing immediate pain. She reports not seeing anyone for left sided jaw pain, but stated she could no longer stand the pain this morning. As per patient , reports being too frightened to open her mouth, stating it causes her increased pain. She reports experiencing headache and difficulty breathing while laying down secondary to left sided facial pain. Patient reports experiencing nasal congestion, chest congestion, chills and fever of 99.5. according to the patient this has been going on for last few months and she decided to use clove to kill the nerve but then the above incidence happened and patient came to the hospital denies fever and any other issues - History Source History Provided By: Patient Limitations to Obtaining History: No Limitations - Alcohol/Substance Use Hx Alcohol Use: No - Smoking History Smoking history: Current some day smoker Have you smoked in the past 12 months: No Aproximately how many cigarettes per day: 2 Home Medications - Allergies Allergies/Adverse Reactions: Allergies Allergy/AdvReac Type Severity Reaction Status Date / Time ketorolac tromethamine Allergy Verified 08/22/17 16:49 [From Toradol] - Home Medications Home Medications: Ambulatory Orders Amoxicillin/Potassium Clav [Augmentin 875-125 Tablet] 1 each PO BID #20 tablet 08/24/17 Clindamycin [Cleocin -] 300 mg PO Q6HPO #28 capsule 08/24/17 Review of Systems - Review of Systems Constitutional: reports: No Symptoms Eyes: reports: No Symptoms HENT: reports: Other (mouth pain left side swelling inability to opent he mouth) Neck: reports: No Symptoms Cardiovascular: reports: No Symptoms Respiratory: reports: No Symptoms Gastrointestinal: reports: No Symptoms Musculoskeletal: reports: No Symptoms Integumentary: reports: No Symptoms Neurological: reports: No Symptoms Endocrine: reports: No Symptoms Hematology/Lymphatic: reports: No Symptoms Psychiatric: reports: No Symptoms Physical Exam Vital Signs: Vital Signs Temperature 97.9 F 08/23/17 00:56 Pulse Rate 76 08/23/17 16:02 Respiratory Rate 18 08/23/17 16:02 Blood Pressure 136/85 08/23/17 16:02 O2 Sat by Pulse Oximetry (%) 99 08/23/17 16:02 Constitutional: Yes: Well Nourished, Calm, Mild Distress HENT: Yes: Other (swelling with tenderness ,inability to open the mouth) Cardiovascular: Yes: Regular Rate and Rhythm Respiratory: Yes: Regular, CTA Bilaterally Gastrointestinal: Yes: Normal Bowel Sounds, Soft Musculoskeletal: Yes: WNL Extremities: Yes: WNL Neurological: Yes: Alert, Oriented Psychiatric: Yes: Alert, Oriented Labs: CBC, BMP 08/23/17 06:30 08/23/17 06:30 Imaging - Results Cat Scan: Report Reviewed, Image Reviewed Assessment/Plan Problem List - Problems (1) Submandibular abscess Code(s): K12.2 - CELLULITIS AND ABSCESS OF MOUTH (2) Swelling of left side of face Code(s): R22.0 - LOCALIZED SWELLING, MASS AND LUMP, HEAD patient has been started on clinda plan continue abx will add unasyn rest as per primary
--- NOTE | 2017-08-23 17:24 | PN ---
Progress Note, Physician History of Present Illness: feeling better - Current Medication List Current Medications: Active Medications Acetaminophen (Tylenol -) 650 mg PO Q6H PRN PRN Reason: FEVER Acetaminophen (Tylenol -) 325 mg PO Q6H PRN PRN Reason: PAIN LEVEL 6-10 Last Admin: 08/23/17 09:15 Dose: 325 mg Clindamycin Phosphate (Cleocin 300 Mg Premix Ivpb) 300 mg in 50 mls @ 100 mls/ hr IVPB Q6H-IV ARABELLA Last Admin: 08/23/17 15:51 Dose: 100 mls/hr Ampicillin Sodium/Sulbactam (Sodium 3 gm/ Dextrose) 100 mls @ 200 mls/hr IVPB Q8H-IV ARABELLA Oxycodone HCl (Roxicodone -) 5 mg PO Q6H PRN PRN Reason: PAIN LEVEL 6-10 Last Admin: 08/23/17 09:03 Dose: 5 mg - Objective Vital Signs: Vital Signs Temperature 97.9 F 08/23/17 00:56 Pulse Rate 76 08/23/17 16:02 Respiratory Rate 18 08/23/17 16:02 Blood Pressure 136/85 08/23/17 16:02 O2 Sat by Pulse Oximetry (%) 99 08/23/17 16:02 Constitutional: Yes: No Distress HENT: Yes: Other (swelling better) Cardiovascular: Yes: Regular Rate and Rhythm Respiratory: Yes: CTA Bilaterally Gastrointestinal: Yes: Normal Bowel Sounds Extremities: Yes: WNL Edema: Yes Neurological: Yes: Alert, Oriented Labs: CBC, BMP 08/23/17 06:30 08/23/17 06:30 INR, PTT INR 1.04 (0.82-1.09) 08/22/17 20:20 Problem List - Problems (1) Submandibular abscess Assessment/Plan: iv abx prn pain meds id consult Code(s): K12.2 - CELLULITIS AND ABSCESS OF MOUTH (2) Swelling of left side of face Code(s): R22.0 - LOCALIZED SWELLING, MASS AND LUMP, HEAD
[2017-08-23] MEDS: AMPICILLIN NA/SULBACTAM NA 3 GM in DEXTROSE 5%-WATER - 100 ML IVPB SCH (19:46)
[2017-08-23] MEDS ORDERED: CLINDAMYCIN 600MG PREMIX IVPB 600 MG/50 ML BAG IVPB ONE (21:14)
[2017-08-24] MEDS: AMPICILLIN NA/SULBACTAM NA 3 GM in DEXTROSE 5%-WATER - 100 ML IVPB SCH ×3 (02:25→17:26)
[2017-08-24] MEDS ORDERED: IBUPROFEN 600 MG TABLET (FP) PO ONE (02:26)
[2017-08-24] MEDS ORDERED: IBUPROFEN 600 MG TABLET (FP) PO PRN (02:30)
[2017-08-24] MEDS: CLINDAMYCIN 300 MG PREMIX IVPB 300 MG/50 ML BAG IVPB SCH ×4 (04:48→21:11)
[2017-08-24] MEDS ORDERED: HYDROmorphone HCL 2 MG TABLET PO ONE (08:30)
[2017-08-24] MEDS ORDERED: oxyCODONE HCL 5 MG TABLET ONE (08:32)
[2017-08-24] MEDS ORDERED: ACETAMINOPHEN 325 MG TABLET (FP) ONE ×2 (08:32)
[2017-08-24] MEDS: ACETAMINOPHEN 325 MG TABLET (FP) PO PRN ×3 (08:35→17:26)
[2017-08-24] MEDS ORDERED: HYDROmorphone HCL 2 MG TABLET ONE (08:38)
--- NOTE | 2017-08-24 10:09 | PN ---
Progress Note, Physician - Current Medication List Current Medications: Active Medications Acetaminophen (Tylenol -) 650 mg PO Q6H PRN PRN Reason: FEVER Last Admin: 08/24/17 08:35 Dose: 650 mg Acetaminophen (Tylenol -) 325 mg PO Q6H PRN PRN Reason: PAIN LEVEL 6-10 Last Admin: 08/24/17 08:36 Dose: 325 mg Hydromorphone HCl (Dilaudid Injection -) 1 mg IVPB Q3H PRN PRN Reason: PAIN Clindamycin Phosphate (Cleocin 300 Mg Premix Ivpb) 300 mg in 50 mls @ 100 mls/ hr IVPB Q6H-IV ARABELLA Last Admin: 08/24/17 04:48 Dose: 100 mls/hr Ampicillin Sodium/Sulbactam (Sodium 3 gm/ Dextrose) 100 mls @ 200 mls/hr IVPB Q8H-IV ARABELLA Last Admin: 08/24/17 09:32 Dose: 200 mls/hr Ibuprofen (Motrin -) 600 mg PO NOW PRN PRN Reason: PAIN Last Admin: 08/24/17 02:31 Dose: 600 mg Oxycodone HCl (Roxicodone -) 5 mg PO Q6H PRN PRN Reason: PAIN LEVEL 6-10 Last Admin: 08/23/17 09:03 Dose: 5 mg - Objective Vital Signs: Vital Signs Temperature 98.2 F 08/24/17 07:05 Pulse Rate 64 08/24/17 07:05 Respiratory Rate 12 08/24/17 07:05 Blood Pressure 110/68 08/24/17 07:05 O2 Sat by Pulse Oximetry (%) 99 08/24/17 07:05 Constitutional: Yes: No Distress HENT: Yes: Other (face still swollen left side) Cardiovascular: Yes: Regular Rate and Rhythm Respiratory: Yes: CTA Bilaterally Gastrointestinal: Yes: Normal Bowel Sounds Extremities: Yes: WNL Neurological: Yes: Alert, Oriented Labs: CBC, BMP 08/23/17 06:30 08/23/17 06:30 INR, PTT INR 1.04 (0.82-1.09) 08/22/17 20:20 Problem List - Problems (1) Submandibular abscess Assessment/Plan: iv abx prn pain meds id consult Code(s): K12.2 - CELLULITIS AND ABSCESS OF MOUTH (2) Swelling of left side of face Code(s): R22.0 - LOCALIZED SWELLING, MASS AND LUMP, HEAD Assessment/Plan d/w id pt need to stay on iv abx as ct scan has abcess
[2017-08-24] MEDS ORDERED: CLINDAMYCIN PHOSPHATE 600 MG/4 ML VIAL ONE (10:38)
[2017-08-24] MEDS ORDERED: HYDROmorphone HCL CARPU-JECT 2 MG/1 ML DISP.SYRIN ONE (15:00)
[2017-08-24] MEDS: HYDROmorphone HCL CARPU-JECT 1 MG/1 ML DISP.SYRIN IVPB PRN ×2 (15:11→20:51)
--- NOTE | 2017-08-24 17:10 | PN ---
Progress Note, Physician History of Present Illness: patient still with pain inability to open the jaw - Current Medication List Current Medications: Active Medications Acetaminophen (Tylenol -) 650 mg PO Q6H PRN PRN Reason: FEVER Last Admin: 08/24/17 08:35 Dose: 650 mg Acetaminophen (Tylenol -) 325 mg PO Q6H PRN PRN Reason: PAIN LEVEL 6-10 Last Admin: 08/24/17 08:36 Dose: 325 mg Hydromorphone HCl (Dilaudid Injection -) 1 mg IVPB Q3H PRN PRN Reason: PAIN Last Admin: 08/24/17 15:11 Dose: 1 mg Clindamycin Phosphate (Cleocin 300 Mg Premix Ivpb) 300 mg in 50 mls @ 100 mls/ hr IVPB Q6H-IV ARABELLA Last Admin: 08/24/17 17:04 Dose: 100 mls/hr Ampicillin Sodium/Sulbactam (Sodium 3 gm/ Dextrose) 100 mls @ 200 mls/hr IVPB Q8H-IV ARABELLA Last Admin: 08/24/17 09:32 Dose: 200 mls/hr Ibuprofen (Motrin -) 600 mg PO NOW PRN PRN Reason: PAIN Last Admin: 08/24/17 02:31 Dose: 600 mg Oxycodone HCl (Roxicodone -) 5 mg PO Q6H PRN PRN Reason: PAIN LEVEL 6-10 Last Admin: 08/23/17 09:03 Dose: 5 mg - Objective Vital Signs: Vital Signs Temperature 98.2 F 08/24/17 11:05 Pulse Rate 74 08/24/17 11:05 Respiratory Rate 12 08/24/17 09:00 Blood Pressure 102/60 08/24/17 11:05 O2 Sat by Pulse Oximetry (%) 99 08/24/17 11:05 Constitutional: Yes: Calm, Mild Distress HENT: Yes: Other (unable to open the mouth still with pain) Cardiovascular: Yes: Regular Rate and Rhythm Respiratory: Yes: Regular, CTA Bilaterally Gastrointestinal: Yes: Normal Bowel Sounds, Soft Musculoskeletal: Yes: WNL Extremities: Yes: WNL Neurological: Yes: Alert, Oriented Psychiatric: Yes: Alert, Oriented Labs: CBC, BMP 08/23/17 06:30 08/23/17 06:30 INR, PTT INR 1.04 (0.82-1.09) 08/22/17 20:20 Assessment/Plan Problem List - Problems (1) Submandibular abscess Code(s): K12.2 - CELLULITIS AND ABSCESS OF MOUTH (2) Swelling of left side of face Code(s): R22.0 - LOCALIZED SWELLING, MASS AND LUMP, HEAD patient has been started on clinda plan continue abx will add unasyn if possible to get oromaxillary surgeon patient will need intervention
[2017-08-24] MEDS ORDERED: PT OWN MED DRAWER 7, Y5N ONE (21:13)
[2017-08-25] MEDS ORDERED: PT OWN MED DRAWER 7, Y5N ONE ×3 (00:58→21:04)
[2017-08-25] MEDS: HYDROmorphone HCL CARPU-JECT 1 MG/1 ML DISP.SYRIN IVPB PRN ×4 (01:02→21:19)
[2017-08-25] MEDS: AMPICILLIN NA/SULBACTAM NA 3 GM in DEXTROSE 5%-WATER - 100 ML IVPB SCH ×3 (01:02→18:44)
[2017-08-25] MEDS: CLINDAMYCIN 300 MG PREMIX IVPB 300 MG/50 ML BAG IVPB SCH ×4 (02:09→23:02)
--- NOTE | 2017-08-25 11:17 | PN ---
Progress Note, Physician History of Present Illness: painful still very tender still with swelling of the left side - Current Medication List Current Medications: Active Medications Acetaminophen (Tylenol -) 650 mg PO Q6H PRN PRN Reason: FEVER Last Admin: 08/24/17 17:26 Dose: 650 mg Acetaminophen (Tylenol -) 325 mg PO Q6H PRN PRN Reason: PAIN LEVEL 6-10 Last Admin: 08/24/17 08:36 Dose: 325 mg Hydromorphone HCl (Dilaudid Injection -) 1 mg IVPB Q3H PRN PRN Reason: PAIN Last Admin: 08/25/17 06:55 Dose: 1 mg Clindamycin Phosphate (Cleocin 300 Mg Premix Ivpb) 300 mg in 50 mls @ 100 mls/ hr IVPB Q6H-IV ARABELLA Last Admin: 08/25/17 08:42 Dose: 100 mls/hr Ampicillin Sodium/Sulbactam (Sodium 3 gm/ Dextrose) 100 mls @ 200 mls/hr IVPB Q8H-IV ARABELLA Last Admin: 08/25/17 01:02 Dose: 200 mls/hr Ibuprofen (Motrin -) 600 mg PO NOW PRN PRN Reason: PAIN Last Admin: 08/24/17 02:31 Dose: 600 mg - Objective Vital Signs: Vital Signs Temperature 97.7 F 08/25/17 08:58 Pulse Rate 78 08/25/17 10:55 Respiratory Rate 18 08/25/17 08:58 Blood Pressure 101/63 08/25/17 08:58 O2 Sat by Pulse Oximetry (%) 97 08/25/17 10:55 Constitutional: Yes: No Distress, Calm HENT: Yes: Other (swellin) Cardiovascular: Yes: Regular Rate and Rhythm Respiratory: Yes: Regular, CTA Bilaterally Gastrointestinal: Yes: Normal Bowel Sounds, Soft Musculoskeletal: Yes: WNL Extremities: Yes: WNL Neurological: Yes: Alert, Oriented Psychiatric: Yes: Alert, Oriented Labs: CBC, BMP 08/23/17 06:30 08/23/17 06:30 INR, PTT INR 1.04 (0.82-1.09) 08/22/17 20:20 Assessment/Plan Problem List - Problems (1) Submandibular abscess Code(s): K12.2 - CELLULITIS AND ABSCESS OF MOUTH (2) Swelling of left side of face Code(s): R22.0 - LOCALIZED SWELLING, MASS AND LUMP, HEAD patient has been started on clinda plan continue abx will consult oral surgeon consult called
--- NOTE | 2017-08-25 18:02 | PN ---
Progress Note, Physician History of Present Illness: pain in her jaw very tender to touch left side of jaw/face - Current Medication List Current Medications: Active Medications Acetaminophen (Tylenol -) 650 mg PO Q6H PRN PRN Reason: FEVER Last Admin: 08/24/17 17:26 Dose: 650 mg Acetaminophen (Tylenol -) 325 mg PO Q6H PRN PRN Reason: PAIN LEVEL 6-10 Last Admin: 08/24/17 08:36 Dose: 325 mg Hydromorphone HCl (Dilaudid Injection -) 1 mg IVPB Q3H PRN PRN Reason: PAIN Last Admin: 08/25/17 16:49 Dose: 1 mg Clindamycin Phosphate (Cleocin 300 Mg Premix Ivpb) 300 mg in 50 mls @ 100 mls/ hr IVPB Q6H-IV ARABELLA Last Admin: 08/25/17 14:43 Dose: 100 mls/hr Ampicillin Sodium/Sulbactam (Sodium 3 gm/ Dextrose) 100 mls @ 200 mls/hr IVPB Q8H-IV ARABELLA Last Admin: 08/25/17 12:13 Dose: 200 mls/hr Ibuprofen (Motrin -) 600 mg PO NOW PRN PRN Reason: PAIN Last Admin: 08/24/17 02:31 Dose: 600 mg - Objective Vital Signs: Vital Signs Temperature 98.2 F 08/25/17 15:11 Pulse Rate 71 08/25/17 15:11 Respiratory Rate 18 08/25/17 15:11 Blood Pressure 129/69 08/25/17 15:11 O2 Sat by Pulse Oximetry (%) 97 08/25/17 10:55 Constitutional: Yes: No Distress HENT: Yes: Other (left side facial swelling improving, but tender to touch) Neck: Yes: Supple Cardiovascular: Yes: Regular Rate and Rhythm Respiratory: Yes: CTA Bilaterally Extremities: Yes: WNL Neurological: Yes: Alert, Oriented Labs: CBC, BMP 08/23/17 06:30 08/23/17 06:30 INR, PTT INR 1.04 (0.82-1.09) 08/22/17 20:20 Problem List - Problems (1) Submandibular abscess Assessment/Plan: iv abx prn pain meds id consult Code(s): K12.2 - CELLULITIS AND ABSCESS OF MOUTH (2) Swelling of left side of face Code(s): R22.0 - LOCALIZED SWELLING, MASS AND LUMP, HEAD
[2017-08-26] MEDS: AMPICILLIN NA/SULBACTAM NA 3 GM in DEXTROSE 5%-WATER - 100 ML IVPB SCH ×2 (02:15→08:59)
[2017-08-26] MEDS: HYDROmorphone HCL CARPU-JECT 1 MG/1 ML DISP.SYRIN IVPB PRN ×2 (03:05→08:59)
--- NOTE | 2017-08-26 13:59 | DS ---
Physical Examination Vital Signs: Vital Signs Temperature 98 F 08/26/17 10:00 Pulse Rate 67 08/26/17 10:00 Respiratory Rate 20 08/26/17 10:00 Blood Pressure 110/70 08/26/17 10:00 O2 Sat by Pulse Oximetry (%) 97 08/25/17 23:43 Constitutional: Yes: No Distress HENT: Yes: Other (left facial swelling much better swift tender on palpation) Cardiovascular: Yes: Regular Rate and Rhythm Respiratory: Yes: CTA Bilaterally Gastrointestinal: Yes: Normal Bowel Sounds Extremities: Yes: WNL Neurological: Yes: Alert, Oriented Labs: CBC, BMP 08/23/17 06:30 08/23/17 06:30 Discharge Summary Reason For Visit: ABSCESS OF SUBMANDIBULAR REGION,SWELLING OF LEFT Current Active Problems Dental abscess (Acute) Submandibular abscess (Acute) Swelling of left side of face (Acute) - Instructions Referrals: Davi Ahumada MD [Primary Care Provider] - Celso Bruner [Staff Physician] - - Home Medications Comprehensive Discharge Medication List: Ambulatory Orders Amoxicillin/Potassium Clav [Augmentin 875-125 Tablet] 1 each PO BID #20 tablet 08/24/17 Clindamycin [Cleocin -] 300 mg PO Q6HPO #28 capsule 08/24/17 Ibuprofen [Motrin -] 600 mg PO QID #60 tablet 08/26/17 dc home on po abx instructed to see oral surgeon next week d/w id
--- NOTE | 2017-08-26 14:17 | PN ---
Progress Note, Physician History of Present Illness: pain still present swelling still present - Current Medication List Current Medications: Active Medications Acetaminophen (Tylenol -) 650 mg PO Q6H PRN PRN Reason: FEVER Last Admin: 08/24/17 17:26 Dose: 650 mg Acetaminophen (Tylenol -) 325 mg PO Q6H PRN PRN Reason: PAIN LEVEL 6-10 Last Admin: 08/24/17 08:36 Dose: 325 mg Hydromorphone HCl (Dilaudid Injection -) 1 mg IVPB Q3H PRN PRN Reason: PAIN Last Admin: 08/26/17 08:59 Dose: 1 mg Ampicillin Sodium/Sulbactam (Sodium 3 gm/ Dextrose) 100 mls @ 200 mls/hr IVPB Q8H-IV ARABELLA Last Admin: 08/26/17 08:59 Dose: 200 mls/hr Ibuprofen (Motrin -) 600 mg PO NOW PRN PRN Reason: PAIN Last Admin: 08/24/17 02:31 Dose: 600 mg - Objective Vital Signs: Vital Signs Temperature 98 F 08/26/17 10:00 Pulse Rate 67 08/26/17 10:00 Respiratory Rate 20 08/26/17 10:00 Blood Pressure 110/70 08/26/17 10:00 O2 Sat by Pulse Oximetry (%) 97 08/25/17 23:43 Constitutional: Yes: Calm, Mild Distress HENT: Yes: Other (still with swellig and tenderness on the left side) Cardiovascular: Yes: Regular Rate and Rhythm Respiratory: Yes: Regular, CTA Bilaterally Gastrointestinal: Yes: Normal Bowel Sounds, Soft Musculoskeletal: Yes: WNL Extremities: Yes: WNL Neurological: Yes: Alert, Oriented Psychiatric: Yes: Alert, Oriented Labs: CBC, BMP 08/23/17 06:30 08/23/17 06:30 INR, PTT INR 1.04 (0.82-1.09) 08/22/17 20:20 Assessment/Plan Problem List - Problems (1) Submandibular abscess Code(s): K12.2 - CELLULITIS AND ABSCESS OF MOUTH (2) Swelling of left side of face Code(s): R22.0 - LOCALIZED SWELLING, MASS AND LUMP, HEAD seems oral surgeon cannot come to the hospital patient needs to see oral surgeon patient can be switched to oral abx and then needs to follow with the dentist or oral surgeon for further mgmt plan can switch to oral clinda 300 mg every 8 hourly and augmentin 875 mg twice a day to give for a total of 7 days follow up with dentist or oral surgeon
[2017-08-26 14:34] VITALS: BP 132/65; PULSE 64; TEMP 98.3
== END 2017-08-26 16:44 | disposition home or self-care (01) ==
LOC: JER 16:44 → JERBED 21:08 → J7W 08-24 19:30
PROVIDERS: ADMIT Internal Medicine; ATTEND Internal Medicine
DX: K12.2 Cellulitis and abscess of mouth (principal); K04.7 Periapical abscess without sinus; E22.0 Acromegaly and pituitary gigantism; R22.0 Localized swelling, mass and lump, head
CPT/HCPCS: 36415; 70490-TC; 80053; 81003; 82550; 82803; 83605; 84484; 85025; 85610; 85730; 86850; 86900; 86901; 87040; 99284-25; G0378

== ENCOUNTER 2018-10-29 02:23 | Emergency (ER) | payer OTHER ==
[2018-10-29 02:27] VITALS: BP 128/78; PULSE 78; TEMP 98.1; BMI 29.2
[2018-10-29] MEDS ORDERED: ACETAMINOPHEN 325 MG TABLET (FP) PO ONE (03:40)
[2018-10-29] MEDS ORDERED: ACETAMINOPHEN 325 MG TABLET (FP) ONE (03:45)
--- NOTE | 2018-10-29 03:47 | PDOC ---
History of Present Illness - General Chief Complaint: Injury Stated Complaint: FALL Time Seen by Provider: 10/29/18 02:25 - History of Present Illness Initial Comments: 10/29/18 03:41 48 yo F with no significant pmh who p/w closed head injury s/p syncope and collapse. Patient reports getting into shower this AM, and bending over, then standing up, with fall and LOC. Patient reports falling backwards while on the phone with spouse. Spouse reports calling patients name multiple times with no response. Patient regained consciousness after 5 minutes, and ambulatory following event. Reports diffuse posterior headache, and left elbow pain following event. Slight posterior neck pain with absent stiffness. Denies h/o syncope. Patient denies vision change, palpitations, cough, wheezing, orthopena, PND, leg swelling/pain, N/V, F,C, CP, SOB, urinary complaints, hematuria, BPR, abdominal pain, diarrhea, constipation, weakness, sensory changes. PMHx: as noted above ROS: as noted Allergies: NKDA Past History - Past Medical History Allergies/Adverse Reactions: Allergies Allergy/AdvReac Type Severity Reaction Status Date / Time ketorolac tromethamine Allergy Verified 10/29/18 02:25 [From Toradol] Penicillins Allergy Verified 10/29/18 03:37 oxycodone [From Percocet] AdvReac Verified 10/29/18 03:37 Home Medications: Ambulatory Orders NK [No Known Home Medication] 10/29/18 CVA: No COPD: No DVT: No - Immunization History Immunization Up to Date: Yes - Suicide/Smoking/Psychosocial Hx Smoking Status: No Smoking History: Unknown if ever smoked Have you smoked in the past 12 months: No Number of Cigarettes Smoked Daily: 2 Information on smoking cessation initiated: No Hx Alcohol Use: No Drug/Substance Use Hx: No Substance Use Type: Cocaine, Marijuana Review of Systems - Review of Systems Comments:: 10/29/18 03:47 GENERAL/CONSTITUTIONAL: No fever or chills. No weakness. HEAD, EYES, EARS, NOSE AND THROAT: No change in vision. No ear pain or discharge. No sore throat. CARDIOVASCULAR: No chest pain or shortness of breath RESPIRATORY: No cough, wheezing, or hemoptysis. GASTROINTESTINAL: No nausea, vomiting, diarrhea or constipation. GENITOURINARY: No dysuria, frequency, or change in urination. MUSCULOSKELETAL: No joint or muscle swelling or pain. No neck or back pain. SKIN: No rash NEUROLOGIC: + Lightheadedness and headache, loss of consciousness. No vertigo, or change in strength/sensation. ENDOCRINE: No increased thirst. No abnormal weight change HEMATOLOGIC/LYMPHATIC: No anemia, easy bleeding, or history of blood clots. ALLERGIC/IMMUNOLOGIC: No hives or skin allergy. *Physical Exam - Vital Signs Last Vital Signs Temp Pulse Resp BP Pulse Ox 98.1 F 78 20 128/78 100 10/29/18 02:25 10/29/18 02:25 10/29/18 02:25 10/29/18 02:25 10/29/18 02:25 - Physical Exam Comments: 10/29/18 03:47 GENERAL: Awake, alert, and fully oriented, in no acute distress HEAD: No signs of trauma, normocephalic, atraumatic EYES: PERRLA, EOMI, sclera anicteric, conjunctiva clear ENT: Auricles normal inspection, hearing grossly normal, nares patent, oropharynx clear without exudates. Moist mucosa NECK: Normal ROM, supple, no lymphadenopathy, JVD, or masses LUNGS: No distress, speaks full sentences, clear to auscultation bilaterally HEART: Regular rate and rhythm, normal S1 and S2, no murmurs, rubs or gallops, peripheral pulses normal and equal bilaterally. ABDOMEN: Soft, nontender, normoactive bowel sounds. No guarding, no rebound. No masses EXTREMITIES : Normal inspection, Normal range of motion, no edema. No clubbing or cyanosis. NEUROLOGICAL: Cranial nerves II through XII grossly intact. Normal speech, normal gait, no focal sensorimotor deficits SKIN: Warm, Dry, normal turgor, no rashes or lesions noted Moderate Sedation - Procedure Monitoring Vital Signs: Procedure Monitoring Vital Signs Temperature 98.1 F 10/29/18 02:25 Pulse Rate 78 10/29/18 02:25 Respiratory Rate 20 10/29/18 02:25 Blood Pressure 128/78 10/29/18 02:25 O2 Sat by Pulse Oximetry (%) 100 10/29/18 02:25 ED Treatment Course - RADIOLOGY Radiology Studies Ordered: Category Date Time Status CERVICAL SPINE CT W/O CONTR [CT] Stat CT Scan 10/29/18 03:[address] WITHOUT CONTRAST [CT] Stat CT Scan 10/29/18 03:40 Ordered Medical Decision Making - Medical Decision Making 10/29/18 03:45 48 yo F with no significant pmh who p/w closed head injury s/p syncope and collapse. Vitals wnl, AF, A&OX3. Phyiscal exam unremarkable. CTH r/o hemorrhage , hematoma, fracture. Will assess for cardiac dysarrythmias, hypoglycemia, electrolyte abnml, metabolic and toxic derangements, acid-base disturbances, infection. Ed Course: 10/29/18 03:48 Patient refuses lab/blood draw 10/29/18 03:48 Tylenol 650 mg 10/29/18 05:52 CTH: Unremarkable 10/29/18 06:09 Patient stable for d/c with return precautions. *DC/Admit/Observation/Transfer Diagnosis at time of Disposition: Syncope and collapse Closed head injury Qualifiers: Encounter type: initial encounter Qualified Code(s): S09.90XA - Unspecified injury of head, initial encounter - Discharge Dispostion Condition at time of disposition: Stable - Referrals - Patient Instructions Printed Discharge Instructions: How to Prevent Falls, DI for Closed Head Injury Additional Instructions: Please return to the emergency department with any new or worsening symptoms or concerns. Please follow up with your primary care physician within 72 hours. - Post Discharge Activity
--- NOTE | 2018-10-29 04:08 | PDOC ---
Attending Attestation - Resident Resident Name: Rodri Stroud - ED Attending Attestation I have performed the following: I have examined & evaluated the patient, The case was reviewed & discussed with the resident, I agree w/resident's findings & plan, Exceptions are as noted - HPI HPI: 10/29/18 04:03 48 F with no PMH presents to ED with syncope. Pt was in the bathroom after taking a hot bath. She bent down to pick something up and as she stood up began to feel very lightheaded. Pt subsequently lost consciousness. Pt woke up on the ground shortly after. Complains of mild headache, which she believes is due to hitting her head on the ground. Denies any CP/SOB. Denies palpitations. Denies lightheadedness. Pt notes that she did not eat all day and is on her feet in a hot kitchen at work for several hours. - Physicial Exam PE: 10/29/18 04:08 "GENERAL: Awake, alert, and fully oriented, in no acute distress. HEAD: No signs of trauma EYES: PERRLA, EOMI, sclera anicteric, conjunctiva clear ENT: Auricles normal inspection, hearing grossly normal, nares patent, oropharynx clear without exudates. Moist mucosa NECK: Nontender, no stepoffs, Normal ROM, supple, no lymphadenopathy, JVD, or masses LUNGS: Breath sounds equal, clear to auscultation bilaterally. No wheezes, and no crackles HEART: Regular rate and rhythm, normal S1 and S2, no murmurs, rubs or gallops ABDOMEN: Soft, nontender, normoactive bowel sounds. No guarding, no rebound. No masses EXTREMITIES: Normal range of motion, no edema. No clubbing or cyanosis. No cords, erythema, or tenderness NEUROLOGICAL: Cranial nerves II through XII intact. 5/5 strength and sensation in all extremities, Normal speech, normal gait, normal cerebellar function SKIN: Warm, Dry, normal turgor, no rashes or lesions noted. - Medical Decision Making 10/29/18 04:09 48 F with syncopal episode after standing from bent over position. Likely orthostatic syncope. Pt with normal EKG. No evidence of arrhythmia. - CT head/c-spine Pt is refusing all bloodwork at this time. I explained to pt that without bloodwork we cannot rule out anemia, electrolyte abnormalities, blood clots, or heart attack. Pt expresses understanding but insists that she does not want labs. Pt HD stable with no clinical signs of anemia. Has had prior hysterectomy. Denies any CP/SOB to suggest ACS. 10/29/18 05:[address] read unremarkable Pt reassessed - ate food and now feels better Once again offered labwork to pt, who declines. Pt is well appearing, with normal vitals. Clinically stable for DC at this time. I discussed the physical exam findings, ancillary test results and final diagnoses with the patient. I answered all of the patient's questions. The patient was satisfied with the care received and felt comfortable with the discharge plan and treatment plan. The patient agrees to follow up with the primary care physician within 24-72 hours.
[2018-10-29] MEDS ORDERED: METHOCARBAMOL 500 MG TABLET PO ONE (05:16)
[2018-10-29] MEDS ORDERED: LIDOCAINE 5% TOPICAL PATCH TP ONE (05:16)
[2018-10-29] MEDS ORDERED: LIDOCAINE 5% TOPICAL PATCH ONE (05:18)
[2018-10-29] MEDS ORDERED: METHOCARBAMOL 500 MG TABLET ONE (05:18)
[2018-10-29] MEDS ORDERED: LIDOCAINE PATCH REMOVAL MC SCH (22:00)
--- NOTE | 2018-10-31 22:03 | EKG ---
Test Reason : Blood Pressure : / mmHG Vent. Rate : 067 BPM Atrial Rate : 070 BPM P-R Int : 148 ms QRS Dur : 078 ms QT Int : 396 ms P-R-T Axes : 044 -21 024 degrees QTc Int : 418 ms NORMAL SINUS RHYTHM NORMAL ECG WHEN COMPARED WITH ECG OF 18-APR-2016 03:47, NO SIGNIFICANT CHANGE WAS FOUND Confirmed by MD JIMENEZ, SNEHA ([id number]) on 10/31/2018 10:03:17 PM Referred By: Confirmed By:SNEHA GAONA MD
== END 2018-10-29 06:56 | disposition home or self-care (01) ==
LOC: JER 02:23
DX: R55 Syncope and collapse (principal); S06.9X1A Unspecified intracranial injury with loss of consciousness of 30 minutes or less, initial encounter; W18.39XA Other fall on same level, initial encounter; Y93.89 Activity, other specified; Y92.031 Bathroom in apartment as the place of occurrence of the external cause; Y99.8 Other external cause status
CPT/HCPCS: 70450-TC; 72125-TC; 73070-TC-RT-FY; 93005; 93010; 99281-25

== ENCOUNTER 2019-03-08 00:47 | Inpatient (IN) | payer SELFPAY, OTHER | END 2019-03-10 13:38 | disposition home or self-care (01) | LOC: JER 00:47 → JERBED 08:08 → J5S 11:55 ==